=== PATIENT | male | born 1995 | race African-American/Black ===

== ENCOUNTER 2020-10-18 21:47 | Emergency (ER) | payer OTHER, SELFPAY ==
[2020-10-19] MEDS ORDERED: AMOX/K CLAV 875 MG TAB ONE (00:03)
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
[2020-10-19 02:45] VITALS: BP 142/90; TEMP 97.4; O2SAT 99
--- NOTE | 2020-10-19 08:21 | RAD REPORT ---
EXAM DESCRIPTION: RAD - Hand Right 3 View - 10/18/2020 10:40 pm CLINICAL HISTORY: PAIN, trauma to the hand COMPARISON: No comparisons FINDINGS: No fracture is identified. There is no dislocation or periosteal reaction noted. No acute bone or joint finding identified. Soft tissues of the dorsum of the hand are prominent. Nature of th e injury is unknown. There is a rounded 3-4 mm density in the soft tissues overlying the dorsal johny n fifth proximal phalanx. IMPRESSION: No acute bone or joint finding. Small rounded density in the soft tissues near the fifth proximal phalanx is probably chronic and not clinically significant. Correlation is needed with the nature of the injury to determine if this could potentially be a forei gn body.
== END 2020-10-19 01:08 | disposition home or self-care (01) ==
LOC: ER 21:47
PROC: 2W3CX1Z Immobilization of Right Lower Arm using Splint (ICD-10-PCS; principal; 2020-10-19)
DX: S60.511A Abrasion of right hand, initial encounter (principal); S60.221A Contusion of right hand, initial encounter; Y04.0XXA Assault by unarmed brawl or fight, initial encounter; F17.210 Nicotine dependence, cigarettes, uncomplicated
CPT/HCPCS: 99284

== ENCOUNTER 2020-12-07 22:29 | Emergency (ER) | payer SELFPAY ==
[2020-12-07] MEDS ORDERED: KETOROLAC 30 MG/ML INJ ONE (23:54)
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
--- NOTE | 2020-12-08 10:53 | RAD REPORT ---
EXAM DESCRIPTION: RAD ANKLE RIGHT 3 VIEW 12/07/20 COMPARISON: None. TECHNIQUE: Right 3 view ankle x-ray. FINDINGS: A splint immobilizes the right ankle. Mildly displaced posterior malleolar fracture. Bony density lies adjacent to the medial malleolus presumably an additional fracture. No dislocation is seen.
== END 2020-12-08 02:19 | disposition home or self-care (01) ==
LOC: ER 22:29
PROC: 2W3QX1Z Immobilization of Right Lower Leg using Splint (ICD-10-PCS; principal; 2020-12-08)
DX: S82.51XA Displaced fracture of medial malleolus of right tibia, initial encounter for closed fracture (principal)
CPT/HCPCS: 96372; 99284